=== PATIENT | male | born 1980 | race Caucasian/White ===

== ENCOUNTER 2021-10-23 07:58 | Outpatient (RCR) | payer BC, SELFPAY ==
--- NOTE | 2021-10-18 18:20 | ONC.NURNOTE ---
Authorization: User: Arelis JimenezAllan Nj Date: 07/18/21 12:44 Type: Eligibility Determination Note... Received request for Infliximab (J1745) 10mg/kg every 4 weeks. Pt has [facility]. This has been approved 07/11/2021-07/11/2022, Ref #[id number] User: Arelis AAllan Nj Date: 09/13/21 13:28 Type: Eligibility Determination Note... Received request for prior auth for Jordi (Q0138). Pt carries [facility]. Per Rosanna, prior auth is not required. Call ref #[id number]
[2021-10-23 08:10] VITALS: BP 112/68; PULSE 69; RESP 16; TEMP 36.2; O2SAT 100
[2021-10-23 08:50] VITALS: TEMP 36.6
[2021-10-23] MEDS: 0.9 % SODIUM CHLORIDE 250 ml 250 ML 35 ML IV (08:52)
[2021-10-23 09:05] VITALS: BP 104/66; PULSE 57; RESP 14; TEMP 36.8; O2SAT 98
[2021-10-23 09:25] VITALS: BP 100/60; PULSE 58; RESP 14; TEMP 36.6; O2SAT 98
[2021-10-23 10:00] VITALS: BP 100/57; PULSE 58; RESP 14; TEMP 36.2; O2SAT 98
[2021-10-23 12:12] VITALS: BP 122/74; PULSE 58; RESP 16; TEMP 36.6; O2SAT 99
[2021-10-23] MEDS: SODIUM CHLORIDE 0.9 % (FLUSH) 10 ML SYRINGE IVF (15:21)
== END 2021-11-03 23:59 | disposition home or self-care (01) ==
LOC: CCIC 07:58
PROVIDERS: Visit Provider Clinical Nurse Specialist
DX: K50.90 Crohn's disease, unspecified, without complications (principal)
CPT/HCPCS: 96365; 96366; J7050; J7120

== ENCOUNTER 2022-05-07 08:00 | Outpatient (RCR) | payer BC, SELFPAY ==
[2021-11-20 08:08] VITALS: PULSE 62; RESP 16; TEMP 35.8; O2SAT 93
[2021-11-20] MEDS: 0.9 % SODIUM CHLORIDE 250 ml 250 ML 35 ML IV (08:40)
[2021-12-18 08:00] VITALS: BP 146/87; PULSE 67; RESP 14; TEMP 36.2; O2SAT 100
[2021-12-18] MEDS: ACETAMINOPHEN 325 MG TABLET 650 MG PO (08:49)
[2021-12-18] MEDS: 0.9 % SODIUM CHLORIDE 250 ml 250 ML 35 ML IV (08:50)
[2022-01-15 08:05] VITALS: BP 119/74; PULSE 69; RESP 16; TEMP 36.3; O2SAT 96
[2022-02-12 07:58] VITALS: BP 114/71; PULSE 70; RESP 16; TEMP 36.2; O2SAT 98
[2022-03-12 08:02] VITALS: BP 134/79; PULSE 63; RESP 16; TEMP 35.9; O2SAT 99
[2022-03-12] MEDS: 0.9 % SODIUM CHLORIDE 250 ml 250 ML 35 ML IV (08:29)
[2022-04-09 08:01] VITALS: BP 106/74; PULSE 71; RESP 16; TEMP 36.4; O2SAT 97
[2022-05-07 08:00] VITALS: BP 167/115; PULSE 60; RESP 18; TEMP 36.4; O2SAT 97
[2022-05-07 08:20] VITALS: BP 123/79
[2022-05-07] MEDS: 0.9 % SODIUM CHLORIDE 250 ml 250 ML 30 ML IV (08:31)
[2022-05-07] MEDS: ACETAMINOPHEN 325 MG TABLET 650 MG PO (08:34)
== END 2022-05-19 23:59 | disposition home or self-care (01) ==
LOC: CCIC 08:00
PROVIDERS: PCP Physician Assistant; Referring Provider Physician Assistant; Visit Provider Clinical Nurse Specialist
DX: K50.90 Crohn's disease, unspecified, without complications (principal)
CPT/HCPCS: 36415; 96365; 96366; 96413; 96415; A9270; J7050; J7120

== ENCOUNTER 2022-11-19 08:00 | Outpatient (RCR) | payer BC, SELFPAY ==
[2022-06-04] MEDS: ACETAMINOPHEN 325 MG TABLET 650 MG PO (08:12)
[2022-06-04] MEDS: 0.9 % SODIUM CHLORIDE 250 ml 250 ML 35 ML IV (09:02)
[2022-06-04 09:38] VITALS: BP 127/85; PULSE 97; RESP 20; TEMP 36.4; O2SAT 97
--- NOTE | 2022-07-01 09:47 | URNOTE ---
Received request for Inflectra (Q5103) 10mg/kg every 6 weeks. Pt has [facility] [place]. This has been approved 06/25/2022-06/26/2023, Ref #[id number], called to confirm medication can be buy and billed to insurance per Jennifer called 07/01/22 0948-call ref#[id number].
[2022-07-16 08:05] VITALS: BP 134/67; PULSE 69; RESP 16; TEMP 35.9; O2SAT 99
[2022-08-27 08:07] VITALS: BP 122/74; PULSE 63; RESP 16; TEMP 36.1; O2SAT 98
[2022-08-27] MEDS: 0.9 % SODIUM CHLORIDE 250 ml 250 ML 35 ML IV (10:08)
[2022-10-08 08:07] VITALS: BP 137/88; PULSE 74; RESP 16; TEMP 35.9; O2SAT 98
[2022-10-08] MEDS: ACETAMINOPHEN 325 MG TABLET 650 MG PO (08:18)
[2022-10-08] MEDS: 0.9 % SODIUM CHLORIDE 250 ml 250 ML 35 ML IV (08:34)
[2022-11-19 08:03] VITALS: BP 130/81; PULSE 70; RESP 18; TEMP 36.9; O2SAT 98
[2022-11-19] MEDS: ACETAMINOPHEN 325 MG TABLET 650 MG PO (08:52)
[2022-11-19 10:10] VITALS: BP 118/68; PULSE 60; RESP 14; TEMP 36.5; O2SAT 97
== END 2022-12-01 23:59 | disposition home or self-care (01) ==
LOC: CCIC 08:00
PROVIDERS: PCP Physician Assistant; Referring Provider Physician Assistant; Visit Provider Clinical Nurse Specialist
DX: K50.90 Crohn's disease, unspecified, without complications (principal)
CPT/HCPCS: 36415; 80230; 82397; 96366; 96413; 96415; Q5103; A9270; J7050; J7120

== ENCOUNTER 2023-05-28 08:00 | Outpatient (RCR) | payer BC, OTHER, SELFPAY ==
[2022-12-31 08:08] VITALS: BP 117/75; PULSE 66; RESP 16; TEMP 36.2; O2SAT 98
[2022-12-31] MEDS: ACETAMINOPHEN 325 MG TABLET 650 MG PO (08:15)
[2023-02-11 08:03] VITALS: BP 124/72; PULSE 62; RESP 17; TEMP 36.3; O2SAT 98
[2023-02-11] MEDS: ACETAMINOPHEN 325 MG TABLET 650 MG PO (08:14)
[2023-03-25 08:02] VITALS: BP 120/75; PULSE 67; RESP 16; TEMP 36.7; O2SAT 98
[2023-03-25] MEDS: ACETAMINOPHEN 325 MG TABLET 650 MG PO (08:25)
[2023-03-25] MEDS: SODIUM CHLORIDE 0.9 % (FLUSH) 10 ML SYRINGE IVF (08:30)
--- NOTE | 2023-04-21 13:59 | ONC.NURNOTE ---
Christiano called to let us know that he will have new insurance starting 05/2023, designer writer asked Christiano to call or stop with new insurance info.
--- NOTE | 2023-05-12 09:36 | PC.NURSE ---
Pt has new insurance. New coverage entered. UR process started. Recent office visit notes requested. Pt's last MD visit was last year, 05/2022, and he hasn't been seen since nor does he have an appointment scheduled. RN spoke with Christiano about this and he shared that he's not been super happy with his care with his current team. RN called Dr. Kemp's office and got Christiano scheduled for a consult on 06/17/2023 at 1:30 PM. Pt updated and agrees with the plan.
--- NOTE | 2023-05-25 15:32 | URNOTE ---
Infectra (Q5103) has been approved until 06/12/2023. This is a site of care roxanna period. He will need to transition to a network home infusion provider, physician office or freestanding ambulatory infusion center.
[2023-05-28 08:02] VITALS: BP 115/76; PULSE 57; RESP 16; TEMP 35.7; O2SAT 98
[2023-05-28] MEDS: ACETAMINOPHEN 325 MG TABLET 650 MG PO (08:09)
[2023-05-28] MEDS: SODIUM CHLORIDE 0.9 % (FLUSH) 10 ML SYRINGE IVF (08:09)
[2023-05-28] MEDS: 0.9 % SODIUM CHLORIDE 250 ml 250 ML 35 ML IV (08:09)
== END 2023-06-29 23:59 | disposition home or self-care (01) ==
LOC: CCIC 08:00
PROVIDERS: PCP Physician Assistant; Referring Provider Physician Assistant; Visit Provider Clinical Nurse Specialist
DX: K50.90 Crohn's disease, unspecified, without complications (principal)
CPT/HCPCS: 96413; 96415; Q5103; A9270; J7030; J7050; J7120